=== PATIENT | female | born 1990 | race Caucasian/White ===

== ENCOUNTER 2021-04-04 17:30 | Emergency (ER) | payer OTHER ==
[~2021-04-04] VITALS: Ht 154.9 cm; Wt 92.1 kg
[2021-04-04 17:43] VITALS: BP_SYST 118
[2021-04-04] MEDS ORDERED: HYDROcodone/ACETAMIN 5-325 MG TAB (NORCO/ VICODIN) PO ONE (19:00)
[2021-04-04] MEDS ORDERED: IBUPROFEN 800 MG TABLET PO ONE (19:00)
[2021-04-04] MEDS ORDERED: IBUP-1969 PO (19:26)
[2021-04-04] MEDS ORDERED: SOM350 PO (19:26)
[2021-04-04 19:33] VITALS: BP_SYST 118
== END 2021-04-04 19:33 | disposition home or self-care (01) ==
LOC: SED 17:30
DX: S13.9XXA Sprain of joints and ligaments of unspecified parts of neck, initial encounter (principal); S20.219A Contusion of unspecified front wall of thorax, initial encounter; Z88.2 Allergy status to sulfonamides; Z79.899 Other long term (current) drug therapy; V49.40XA Driver injured in collision with unspecified motor vehicles in traffic accident, initial encounter; Y93.89 Activity, other specified; Y92.89 Other specified places as the place of occurrence of the external cause; Y99.8 Other external cause status
CPT/HCPCS: 36415; 71045; 72040-TC; 72170-TC; 81025; 84703; 99284

== ENCOUNTER 2021-07-09 16:00 | Emergency (ER) | payer OTHER ==
[~2021-07-09] VITALS: Ht 154.9 cm; Wt 89.8 kg
[~2021-07-09 16:00] MED LIST: IBUP-1969 PO; SOM350 PO
[2021-07-09 16:29] VITALS: BP_SYST 114
--- NOTE | 2021-07-09 16:30 | NUR ---
Patient to h2 to gown for evaluation. Side rails up. Report given to Evy DENISE.
--- NOTE | 2021-07-09 16:35 | NUR ---
ER at bedside examining patient.
--- NOTE | 2021-07-09 16:40 | NUR ---
PT CAME IN FROM HOME C/O SOB AND SORES IN MOUTH. PT IS AMBULATORY, V/S STABLE, 02 SAT 98% RA, AAOX4.
--- NOTE | 2021-07-09 16:55 | NUR ---
Patient transported to radiology via AMBULATION, accompanied by STAFF.
[2021-07-09] MEDS ORDERED: ONDANSETRON 4 MG ODT TAB ONE (17:12)
[2021-07-09 17:14] LABS: BASOPHILS % (AUTO) 0.2 % (0.0-2.0); EOSINOPHILS % (AUTO) 0.1 % (0.0-4.0); HEMATOCRIT 41.8 % (36-48); LYMPHOCYTES # (AUTO) 2.8 K/uL (1.0-5.5); LYMPHOCYTES % (AUTO) 16.6 % (20.5-51.5); MEAN CORPUSCULAR HEMOGLOBIN 29 pg (27-31); MEAN CORPUSCULAR HGB CONC 34 % (32-36); MEAN CORPUSCULAR VOLUME 88 fL (79.0-98.0); MONOCYTES # (AUTO) 1.4 K/uL (0.0-1.0); MONOCYTES % (AUTO) 8.3 % (1.7-9.3); NEUTROPHILS # (AUTO) 12.5 K/uL (1.8-7.7); NEUTROPHILS % (AUTO) 74.8 % (40.0-70.0); PLATELET COUNT (AUTO) 303 K/uL (130-430); RED BLOOD CELL COUNT(AUTO) 4.78 MIL/uL (4.2-6.2); RED CELL DISTRIBUTION WIDTH 13.7 % (9.0-15.0); WHITE BLOOD COUNT (AUTO) 16.7 K/uL (4.8-10.8)
[2021-07-09] MEDS ORDERED: ONDANSETRON 4 MG ODT TAB PO ONE (17:15)
[2021-07-09 17:22] LABS: CALCIUM 9.6 mg/dL (8.4-11.0); CREATININE 1.4 mg/dL (0.55-1.30); POTASSIUM 3.8 mmol/L (3.5-5.1)
--- NOTE | 2021-07-09 17:26 | NUR ---
Patient to ER bed 2 to gown for evaluation. Side rails up.
[2021-07-09 17:29] LABS: ALBUMIN 4.2 g/dL (3.4-4.8)
--- NOTE | 2021-07-09 17:31 | NUR ---
Pt resting in [facility] VSS no distress noted at this time. Attached to monitor with side rails up.
--- NOTE | 2021-07-09 19:23 | NUR ---
Pt unable to produce urine at this time. Pt educated on the need for urine. Pt given two cups of water.
[2021-07-09 21:06] LABS: BILIRUBIN,URINE NEGATIVE (NEGATIVE); BLOOD, URINE NEGATIVE (NEGATIVE); CLARITY/URINE CLOUDY (CLEAR); COLOR,URINE YELLOW (YELLOW); GLUCOSE,URINE NEGATIVE (NEGATIVE); KETONES,URINE NEGATIVE (NEGATIVE); LEUKOCYTE ESTERASE ,URINE 2+ (NEGATIVE); NITRITE, URINE NEGATIVE (NEGATIVE); PROTEIN URINE NEGATIVE (NEGATIVE); UROBILINOGEN,URINE 0.2 (0.2-1.0)
[2021-07-09] MEDS ORDERED: NITR-85 PO (21:18)
[2021-07-09] MEDS ORDERED: cefTRIAXone 1 GM in LIDOCAINE 1%, 20 ML MDV 2.1 ML IM ONE (21:30)
[2021-07-09 21:47] VITALS: BP_SYST 128
--- NOTE | 2021-07-09 21:47 | NUR ---
Patient given written and verbal discharge instructions and verbalizes understanding. ER MD discussed with patient the results and treatment provided. Patient in stable condition. ID arm band removed. Rx of MACROBID given. Patient educated on pain management and to follow up with PMD. Pain Scale 2/10. Opportunity for questions provided and answered. Medication side effect fact sheet provided.
[2021-07-09 22:17] LABS: BACTERIA,URINE MANY /HPF (None Seen); RBC,URINE 0-3 /HPF (0-3); WBC,URINE 20-50 /HPF (0-3)
[2021-07-09 22:18] LABS: MUCUS,URINE 1+ /LPF (None Seen); URINE AMORPHOUS URATE 3+ /HPF (None Seen)
--- NOTE | 2021-07-12 18:52 | NUR ---
RECEIVED +URINE CULTURE FROM LAB, DISCUSSED CASE WITH DR MAGUIRE AND NO FURTHER ACTIONS NEEDED.
== END 2021-07-09 21:47 | disposition home or self-care (01) ==
LOC: SED 16:00
DX: N39.0 Urinary tract infection, site not specified (principal); Z88.2 Allergy status to sulfonamides; Z79.899 Other long term (current) drug therapy; Z20.822 Contact with and (suspected) exposure to COVID-19
CPT/HCPCS: 36415; 71045; 80053; 81000; 85025; 85379; 87086; 87426; 96372; 99284; J0696; J2001; Q0162

== ENCOUNTER 2022-12-20 17:29 | Emergency (ER) | payer OTHER ==
[~2022-12-20] VITALS: Ht 152.4 cm; Wt 96.6 kg
[~2022-12-20 17:29] MED LIST changes: +NITR-85 PO
[2022-12-20 17:30] VITALS: BP_SYST 149
[2022-12-20 19:31] LABS: BILIRUBIN,URINE 1+ (NEGATIVE); BLOOD, URINE NEGATIVE (NEGATIVE); CLARITY/URINE CLOUDY (CLEAR); COLOR,URINE YELLOW (YELLOW); GLUCOSE,URINE NEGATIVE (NEGATIVE); KETONES,URINE 3+ (NEGATIVE); LEUKOCYTE ESTERASE ,URINE TRACE (NEGATIVE); NITRITE, URINE NEGATIVE (NEGATIVE); PH,URINE 6.5 (5.0-8.0); PROTEIN URINE TRACE (NEGATIVE); UROBILINOGEN,URINE 0.2 (0.2-1.0)
[2022-12-20 19:33] LABS: BASOPHILS # (AUTO) 0.1 K/uL (0.0-0.2); BASOPHILS % (AUTO) 0.9 % (0.0-2.0); EOSINOPHILS % (AUTO) 0.2 % (0.0-4.0); HEMATOCRIT 41.4 % (36-48); HEMOGLOBIN 14.4 g/dL (12.0-16.0); LYMPHOCYTES # (AUTO) 2.2 K/uL (1.0-5.5); LYMPHOCYTES % (AUTO) 20.6 % (20.5-51.5); MEAN CORPUSCULAR HEMOGLOBIN 29 pg (27-31); MEAN CORPUSCULAR HGB CONC 35 % (32-36); MEAN CORPUSCULAR VOLUME 83 fL (79.0-98.0); MONOCYTES # (AUTO) 0.9 K/uL (0.0-1.0); MONOCYTES % (AUTO) 8.7 % (1.7-9.3); NEUTROPHILS # (AUTO) 7.5 K/uL (1.8-7.7); NEUTROPHILS % (AUTO) 69.6 % (40.0-70.0); PLATELET COUNT (AUTO) 297 K/uL (130-430); RED BLOOD CELL COUNT(AUTO) 4.98 MIL/uL (4.2-6.2); RED CELL DISTRIBUTION WIDTH 12.9 % (9.0-15.0); WHITE BLOOD COUNT (AUTO) 10.7 K/uL (4.8-10.8)
[2022-12-20 19:56] LABS: ANION GAP 9 (5-15); CALCIUM 9.3 mg/dL (8.4-11.0); CHLORIDE 104 mmol/L (98-107); CREATININE 1.01 mg/dL (0.55-1.30); GLUCOSE 113 mg/dL (70-99); UREA NITROGEN, BLOOD 11 mg/dL (8-21)
[2022-12-20 20:00] LABS: ALANINE AMINOTRANSFERASE 24 U/L (12-78); ALBUMIN 4.7 g/dL (3.4-4.8); AMYLASE 32 U/L (0-100); ASPARTATE AMINOTRANSFERASE 17 U/L (10-37); LIPASE 168 U/L (73-393); TOTAL BILIRUBIN 0.6 mg/dL (0.0-1.0)
[2022-12-20 20:01] LABS: C-REACTIVE PROTEIN QUANT < 0.2 mg/dL (0-0.5); GFR AFRICAN AMERICAN 83 mL/min (>90)
[2022-12-20 20:03] LABS: BACTERIA,URINE FEW /HPF (None Seen); CALCIUM OXALATE CRYSTALS,UR 30-50 /HPF (None Seen); RBC,URINE NONE SEEN /HPF (0-3)
[2022-12-20 20:18] LABS: ACETONE, SERUM NEGATIVE (NEGATIVE)
--- NOTE | 2022-12-20 20:25 | NUR ---
COVID/FLU SWAB GIVEN TO LAB
[2022-12-20] MEDS ORDERED: PSEU30TA36 PO (20:56)
--- NOTE | 2022-12-20 21:20 | NUR ---
Patient A/Ox4, VSS, ambulatory, resp even and unlabored. Patient resting in bed with safety precautions in place and connected to monitor. ER MD Hector made aware.
--- NOTE | 2022-12-20 21:20 | NUR ---
Patient presents to ED from home with c/o elevated heart rate of 120 after working out x1 day. Patient reports pain 0/10 at this time.
--- NOTE | 2022-12-20 21:21 | NUR ---
Patient to [facility] for evaluation. Report given to CAMELIA KRISHNAMURTHY
--- NOTE | 2022-12-20 21:22 | NUR ---
[facility] Hector at bedside.
[2022-12-20 21:30] VITALS: BP_SYST 116
--- NOTE | 2022-12-20 21:30 | NUR ---
Patient given written and verbal discharge instructions and verbalizes understanding. ER MD discussed with patient the results and treatment provided. Patient in stable condition. ID arm band removed. Rx of Sudafed given. Patient educated on pain management and to follow up with PMD. Pain Scale 0/10. Opportunity for questions provided and answered. Medication side effect fact sheet provided. Patient A/Ox4, VSS, ambulatory, resp even and unlabored. Nad noted at this time. Patient in stable condition and accompanied by self.
== END 2022-12-20 21:30 | disposition home or self-care (01) ==
LOC: SED 17:29
DX: R07.81 Pleurodynia (principal); R00.2 Palpitations; J40 Bronchitis, not specified as acute or chronic; R05.9 Cough, unspecified; R53.1 Weakness; Z88.1 Allergy status to other antibiotic agents; Z88.2 Allergy status to sulfonamides; Z79.899 Other long term (current) drug therapy; Z20.822 Contact with and (suspected) exposure to COVID-19
CPT/HCPCS: 36415; 71045; 76376; 80053; 81000; 81025; 82009; 82150; 83605; 83690; 84484; 84703; 85025; 85379; 86140; 99285

== ENCOUNTER 2023-05-15 22:37 | Emergency (ER) | payer OTHER ==
[~2023-05-15] VITALS: Ht 162.6 cm; Wt 93.0 kg
[~2023-05-15 22:37] MED LIST changes: +PSEU30TA36 PO
[2023-05-15 22:50] VITALS: BP_SYST 126; PULSE 89; RESP 20; TEMP 98; O2SAT 98
[2023-05-15 23:23] LABS: BASOPHILS # (AUTO) 0.1 K/uL (0.0-0.2); BASOPHILS % (AUTO) 0.8 % (0.0-2.0); EOSINOPHILS # (AUTO) 0.1 K/uL (0.0-0.4); MEAN CORPUSCULAR HEMOGLOBIN 29 pg (27-31); RED CELL DISTRIBUTION WIDTH 12.9 % (9.0-15.0)
[2023-05-15 23:25] LABS: BILIRUBIN,URINE NEGATIVE (NEGATIVE); BLOOD, URINE NEGATIVE (NEGATIVE); CLARITY/URINE CLOUDY (CLEAR); COLOR,URINE YELLOW (YELLOW); GLUCOSE,URINE NEGATIVE (NEGATIVE); KETONES,URINE TRACE (NEGATIVE); LEUKOCYTE ESTERASE ,URINE TRACE (NEGATIVE); NITRITE, URINE NEGATIVE (NEGATIVE); PROTEIN URINE NEGATIVE (NEGATIVE)
[2023-05-15 23:33] LABS: CALCIUM 8.7 mg/dL (8.4-11.0); CREATININE 1.04 mg/dL (0.55-1.30); TOTAL BILIRUBIN 0.4 mg/dL (0.0-1.0)
[2023-05-15 23:36] LABS: HEMATOCRIT 38.5 % (36-48); LYMPHOCYTES # (AUTO) 2.8 K/uL (1.0-5.5); LYMPHOCYTES % (AUTO) 34.7 % (20.5-51.5); MEAN CORPUSCULAR HGB CONC 34 % (32-36); MEAN CORPUSCULAR VOLUME 86 fL (79.0-98.0); MONOCYTES # (AUTO) 0.7 K/uL (0.0-1.0); MONOCYTES % (AUTO) 8.7 % (1.7-9.3); NEUTROPHILS # (AUTO) 4.3 K/uL (1.8-7.7); NEUTROPHILS % (AUTO) 54.8 % (40.0-70.0); PLATELET COUNT (AUTO) 251 K/uL (130-430); WHITE BLOOD COUNT (AUTO) 7.9 K/uL (4.8-10.8)
[2023-05-15 23:55] LABS: BACTERIA,URINE FEW /HPF (None Seen); RBC,URINE 0-3 /HPF (0-3)
[2023-05-16 00:42] VITALS: BP_SYST 136; PULSE 68; RESP 16; TEMP 97.9; O2SAT 99
== END 2023-05-16 00:42 | disposition home or self-care (01) ==
LOC: SED 22:37
DX: K30 Functional dyspepsia (principal); R42 Dizziness and giddiness; R06.02 Shortness of breath; Z88.1 Allergy status to other antibiotic agents; Z88.2 Allergy status to sulfonamides; Z88.6 Allergy status to analgesic agent; Z79.899 Other long term (current) drug therapy
CPT/HCPCS: 36415; 71045; 76705; 80053; 81000; 82150; 83690; 85025; 93005; 99285